=== PATIENT | female | born 1990 | race Two or more races ===

== ENCOUNTER 2023-09-18 20:44 | Emergency (ER) | payer OTHER ==
[~2023-09-18] VITALS: Ht 170.2 cm; Wt 72.6 kg
[2023-09-18] MEDS ORDERED: KETOROLAC TROMETHAMINE 30 MG VIAL IJ ONE (23:00)
== END 2023-09-19 00:26 | disposition home or self-care (01) ==
LOC: ER 20:44
DX: S89.81XA Other specified injuries of right lower leg, initial encounter (principal); S49.81XA Other specified injuries of right shoulder and upper arm, initial encounter; W19.XXXA Unspecified fall, initial encounter; Y93.89 Activity, other specified; Y92.89 Other specified places as the place of occurrence of the external cause; Y99.8 Other external cause status; Z88.1 Allergy status to other antibiotic agents; Z91.018 Allergy to other foods